=== PATIENT | male | born 1945 | race American Indian/Alaskan Native ===

== ENCOUNTER 2018-12-15 13:14 | Emergency (ER) | payer MEDICARE ==
--- OUTSIDE RECORDS SUMMARY | 2018-12-15 13:45 | XMS REPORT | Continuity of Care Document ---
:1945 Author Organization [facility] Address [address] [place] [address] Care Team Providers Name Role Phone Lou Hernandes MD Unavailable Unavailable Allergies, Adverse Reactions, Alerts Substance Reaction Status No information Medications Medication Instructions Dosage Effective Dates (start - stop) Status Comments No information Problems Condition Effective Dates (start - stop) Clinical Status Comments No information Procedures Procedure Date No information Results Test Name Date and Time Measure Units Reference Range Abnormal Flag Status Comments No information Advance Directives Directive Yes / No Effective Date File Name No information Encounters Encounter Practice Location Reason(s) Diagnoses Date Provider Providers Description For Visit Copied on Encounter Luisa Moran [facility]. [address] [facility] [place], [address] [facility], . Catcher tel:[phone] Daphnie, [address] [place], [place], [phone], Family History Family Member Diagnosis Age At Onset Brother Hypertension Brother Diabetes mellitus Immunizations Vaccine Date Status Comments No information Payers Payer name Insurance type Covered constitution party ID Authorization(s) [employer] [id number] Social History Type Description Quantity Date Captured Comments Alcohol Use Details Unknown Caffeine Use Details Unknown Tobacco Use Status Smoking Status Unknown Sex Male Vital Signs Date / Height Weight BMI Pulse Blood Temperature Respiratory Body Head BMI Pulse Inhaled Time: Rate Pressure Rate Surface Circumference percentile Ox Ox Area No information Chief Complaint And Reason For Visit No information Reason For Referral Reason For Referral No information Plan Of Treatment Date Type Action Status Appointment Shubham King BOOKED Appointment King, Shubham BOOKED History Of Present Illness Encounter Date Complaint History Of Present Illness No information Functional Status Date Functional Assessment No information Medications Administered Medication Instructions Dosage Effective Dates (start - stop) Status Comments No information Instructions Date Instruction Additional Information No information Assessments Type Assessment Date No information Goals Health Concern Goal Type Priority Status Date No information Medical Equipment Description Device Nightmute Device Identifier Effective Dates (start - stop ) Status No information Mental Status Date Cognitive Assessment No information Health Concerns Observation Date No information Concern Status Date No information
--- OUTSIDE RECORDS SUMMARY | 2018-12-15 13:45 | XMS REPORT | Continuity of Care Document ---
:1945 External Reference #:[id number] Author Name Guanaco Zhang MD Address [address] [place] [address] Care Team Providers Name Role Phone Bárbara Hernandes Care Team Information Mainframe Analyst Unavailable Bárbara Hernandes Primary Care Physician Unavailable Payers Date Identification Numbers Payment Provider Subscriber Policy Number: [id number] [facility]-T[facility] Opts PFFS Shubham King PayID: [id number] [address] [address] [place] [address] Expires: 2018 Policy Number: [id number] [employer] Medicare Advantage Shubham King PayID: [id number] [address] [place] [address] Expires: 2017 Policy Number: [id number] [facility] Options PFFS Shubham King Group Name: Medicare Advantage DO Not Use After 18 PayID: [id number] [address] [address] [place] [address] Expires: 2014 Policy Number: [facility] Medicare Solutions Shubham King [id number] PayID: [id number] [address] [address] [place] [address] Expires: 2014 Policy Number: [id number] [place] Shubham King PayID: [id number] Attn: [place] [address] Problems Active Problems Provider Date Microscopic hematuria RJ Haney C.U.N.P. Onset: 08/29/2011 Disorder of prostate RJ Haney C.U.N.P. Onset: 08/29/2011 Benign prostatic hypertrophy without IVELISSE HaneyBC C.U.N.P. Onset: outflow obstruction Nocturia - finding IVELISSE HaneyBC C.U.N.P. Onset: 08/29/2011 Dribbling of urine IVELISSE HaneyBC C.U.N.P. Onset: 08/29/2011 Raised prostate specific antigen IVELISSE HaneyBC C.U.N.P. Onset: 2011 Disorder of lung Guanaco Zhang MD Onset: 09/05/2011 Pulmonary function studies abnormal Guanaco Zhang MD Onset: 09/05/2011 Solitary Pulmonary Nodule IVELISSE HaneyBC C.U.N.P. Onset: 10/19/2012 Slowing of urinary stream IVELISSE HaneyBC C.U.N.P. Onset: 11/12/2012 Urge incontinence of urine LATANYA Haney-BC C.U.N.P. Onset: 06/10/2013 Increased frequency of urination IVELISSE HaneyBC C.U.N.P. Onset: 2014 Nocturia IVELISSE HaneyBC C.U.N.P. Onset: 07/17/2015 Solitary nodule of lung IVELISSE HaneyBC C.U.N.P. Onset: 07/17/2015 Poor stream of urine Guanaco Zhang MD Onset: 12/12/2015 Urinary tract infectious disease IVELISSE HaneyBC C.U.N.P. Onset: 2016 Incomplete emptying of bladder LATANYA Haney-BC C.U.N.P. Onset: 06/06/2016 Urgent desire to urinate IVELISSE HaneyBC C.U.N.P. Onset: 12/12/2016 Pawan hematuria IVELISSE HaneyBC C.U.N.P. Onset: 06/15/2017 Benign adenoma of prostate Onset: 05/12/2016 Community acquired pneumonia Onset: 05/12/2016 Bacteremia caused by Gram-negative Onset: 05/12/2016 bacteria Osteoarthritis of knee Onset: 03/05/2015 Body mass index 30+ - obesity Onset: 03/05/2015 H/O: Deep vein thrombosis Onset: 05/18/2005 Essential hypertension Onset: Chronic obstructive lung disease Onset: Gastroesophageal reflux disease Onset: without esophagitis Type 2 diabetes mellitus Onset: Diabetic polyneuropathy Onset: Hyperlipidemia Onset: H/O: fracture Onset: Glaucoma Onset: Benign prostatic hyperplasia Onset: Coronary arteriosclerosis in [place] Onset: artery Family History Date Family Member(s) Observation Comments Father Prostate Cancer Social History Type Date Description Comments Sex Unknown Marital Status Patient is Occupation Patient is retired Tobacco Use Start: Unknown End: Unknown Pt quit smoking 04/2009 after 40 yrs of 11/2 packs per day. Tobacco Use Start: Unknown End: Unknown Former Cigarette Smoker Smoking Status Reviewed: 12/07/18 Former Cigarette Smoker Tobacco Use Start: Unknown Never Smoked Cigars Tobacco Use Start: Unknown Never Smoked A Pipe ETOH Use Patient denies alcohol use Allergies, Adverse Reactions, Alerts Active Allergies Reaction Severity Comments Date Biaxin 08/29/2011 Clarithromycin Rash Mild 07/14/2009 Medications Active Medications SIG Qnty Indications Ordering Provider Date Tamsulosin HCL take 1 capsule by Virginiecapbibiana Zhang, 08/26/2010 0.4mg mouth once daily MD Capsules 1/2 hour after a meal mdd 1 Toprol XL 1 by mouth every Unknown 50mg Tablets day ER 24HR Cozaar to take one pill Unknown 50mg Tablets daily (losartan) Lipitor 1 by mouth every Unknown 10mg Tablets night at bedtime Aspirin Ec Unknown 325mg Tablets DR Yordy Dobson Unknown Lancets Extra Fine 33G Misc Onetouch Verio Unknown Strips Gabapentin Take 600 mg by Unknown 600mg mouth 3 (three) Tablets times a day Daliresp Take 500 mcg by Unknown 500mcg Tablets mouth nightly Advair Diskus Inhale 1 puff 2 Unknown (two) times a day 250-50mcg/Dose Aerosol Metformin HCL Unknown 500mg Tablets Duoneb qid Unknown 0.5-2.5(3)mg/3ML Solution Singulair daily Unknown 10mg Tablets History Medications Amoxicillin take 4 tablets 1 6caps Guanaco Cameron 06/15/2017 - 500mg Capsules hour prior to MD Vicente 08/28/2017 procedure and 2 tablets six hours after the first dose Nitrofurantoin Monohyd 1 by mouth twice a 14caps Guanaco Cameron 06/09/2016 - Macro day x 7 days MD Vicente 12/12/2016 100mg Capsules Prednisone Take 2 tablets (40 6tabs Unknown 05/16/2016 - 20mg Tablets mg total) by mouth 12/12/2016 daily for 3 days Guaifenesin-DM Take 10 mL by 354units Unknown 05/15/2016 - 100-10mg/5ML mouth every 6 12/12/2016 Liquid (six) hours for 7 days Then 10ml every 6 hours as needed for cough/ congestion Doxycycline Hyclate Take 1 tablet (100 8tabs Unknown 05/15/2016 - 100mg mg total) by mouth 06/05/2016 Tablets 2 (two) times a day for 4 days DSS Take 1 capsule 60caps Unknown 05/15/2016 - 100mg Capsules (100 mg total) by 12/12/2016 mouth 2 (two) times a day as needed for constipation Cefuroxime Axetil Take 1 tablet (500 22tabs Unknown 05/15/2016 - 500mg mg total) by mouth 12/12/2016 Tablets 2 (two) times a day for 11 days Benzonatate Take 1 capsule 20caps Unknown 05/15/2016 - 100mg Capsules (100 mg total) by 12/12/2016 mouth 3 (three) times a day as needed for cough Albuterol Sulfate Take 3 mL (2.5 mg 75units Unknown 05/15/2016 - (2.5mg/3ML) total) by 06/06/2016 0.083% Nebulizer nebulization every 4 (four) hours as needed for wheezing or shortness of breath Acetaminophen Take 2 tablets 30tabs Unknown 05/15/2016 - 325mg Tablets (650 mg total) by 12/12/2016 mouth every 6 (six) hours as needed for pain or fever Ampicillin take 4 tablest one 6caps Guanaco Cameron 03/31/2016 - 500mg Capsules hour prior to ov MD Vicente 12/12/2016 and 2 tablets 6 hours after the first dose Cipro take one tablet 4tabs N42.9 Alejandra Hays, 03/28/2016 - 500mg Tablets twice a day per [facility]- 03/31/2016 instructions for C.U.N.P. procedure Sylvester Take 2 tablet one 4tabs Guanaco A 03/28/2016 - 5-325mg Tablets hour prior to MD Vicente 06/05/2016 procedure and then one every 4 hours for pain prn I Stop # [id number] Cipro take one tablet 4tabs 602.9 Alejandra Hays, 11/24/2014 - 500mg Tablets twice a day per [facility]- 01/05/2015 instructions for C.U.N.P. procedure Atorvastatin Calcium Take 10 mg by Unknown 02/23/2014 - 10mg mouth daily 12/12/2016 Tablets Clotrimazole/Betamethaso Apply 1 Unknown - ne Dipropionate application 08/28/2017 1-0.05% Cream topically daily as needed (to bilateral for skin peeling) Metoprolol Succinate ER Take 25 mg by Unknown - 25mg mouth nightly 08/28/2017 Tablets ER 24HR Albuterol Sulfate Unknown - (2.5mg/3ML) 08/28/2017 0.083% Nebulizer Atorvastatin Calcium take 1 tablet by Unknown - 10mg mouth once daily 08/28/2017 Tablets Levofloxacin take 1 tablet by Unknown - 500mg Tablets mouth once daily 12/12/2016 Methylprednisolone take as directed Unknown - 4mg TBPK on pack 12/12/2016 Tramadol HCL ER take 1 tablet by Unknown - 100mg Tablets mouth once daily 08/28/2017 ER 24HR for pain maximum daily dose of 1 Nortriptyline HCL Unknown - 25mg 08/28/2017 Capsules Ra Acetaminophen take 2 tablets by Unknown - 325mg mouth every 6 12/12/2016 Tablets hours if needed for pain or fever Ra Col-Rite take 1 capsule by Unknown - 100mg Capsules mouth twice a day 12/12/2016 if needed for constipation Ra Tussin DM take 10 Unknown - 100-10mg/5ML milliliters by 12/12/2016 Liquid mouth every 6 hours for 7 days then 10 mil... Doxycycline Hyclate take 1 tablet by Unknown - 100mg mouth twice a day 12/12/2016 Tablets for 4 days Cefuroxime Axetil take 1 tablet by Unknown - 500mg mouth twice a day 12/12/2016 Tablets for 11 Days Benzonatate take 1 capsule by Unknown - 100mg Capsules mouth three times 12/12/2016 a day if needed for cough Ciprofloxacin HCL take 1 tablet by Unknown - 500mg mouth twice a day 12/12/2016 Tablets Per Instructions For Procedure Hydrocodone-Acetaminophe take 2 tablets by Unknown - n mouth 1 hour prior 12/12/2016 5-325mg Tablets to procedure then 1 tablet every Amoxicillin/Clavulanate take 1 tablet by Unknown - Potassium mouth twice a day 12/12/2016 875-125mg Tablets Nexium 1 po qd Unknown - 40mg Capsules DR 06/14/2017 Zanaflex bid Unknown - 4mg Tablets 12/12/2016 Topamax qd Unknown - 25mg 11/24/2014 Aspirin Adult Low bid Unknown - Strength 07/16/2015 81mg Chewtabs Levaquin 1 po qd for 7 days 7tabs Unknown - 750mg Tablets to start the day 11/24/2014 of discharge Flagyl 1 po tid 21tabs Unknown - 250mg Tablets 11/24/2014 Lipitor Unknown - 06/14/2017 Calcium Unknown - 07/16/2015 Xopenex Unknown - 12/12/2016 Flonase Allergy Relief Unknown - 08/28/2017 Topamax qd Unknown - 25mg 07/16/2015 Gabapentin Unknown - 100mg Capsules 06/05/2016 Losartan Potassium take 1 tablet by Unknown - 50mg mouth once daily 08/28/2017 Tablets Incruse Ellipta Inhale 1 puff Unknown - 62.5mcg/Inh daily 08/28/2017 Aerosol Cyclobenzaprine HCL Take 5 mg by mouth Unknown - 5mg 3 (three) times a 12/12/2016 Tablets day as needed for muscle spasms Ranitidine HCL Take 300 mg by Unknown - 300mg Tablets mouth 2 (two) 08/28/2017 times a day Oxycodone HCL Take 5 mg by mouth Unknown - 5mg Tablets 2 (two) times a 08/28/2017 day as needed for pain Medications Administered in Office Medication SIG Qnty Indications Ordering Provider Date Gentamicin 160 MG Guanaco Zhang MD 05/09/2016 Injection Immunizations CPT Code Status Date Vaccine Lot # [id number] Given 02/16/2016 Influenza Vaccine Split Virus Preservative Free Im Use [id number] Given 05/18/2014 Pneumococcal Conjugate Vaccine 13 Valent For Intramuscular Use Vital Signs Date Vital Result Comment 12/07/2018 12:58pm Height 68 inches 5'8" Weight 204.00 lb Weight 92.534 kg BMI (Body Mass Index) 31.0 kg/m2 BP Systolic 116 mmHg BP Diastolic 71 mmHg Heart Rate 64 /min 08/28/2017 10:56am Height 68 inches 5'8" Weight 212.00 lb Weight 96.163 kg BMI (Body Mass Index) 32.2 kg/m2 BP Systolic 130 mmHg BP Diastolic 78 mmHg Heart Rate 68 /min 06/15/2017 2:52pm Height 68 inches 5'8" Weight 208.00 lb Weight 94.349 kg BMI (Body Mass Index) 31.6 kg/m2 BP Systolic 105 mmHg BP Diastolic 67 mmHg Heart Rate 98 /min 12/12/2016 9:46am Height 68 inches 5'8" Weight 206.00 lb Weight 93.442 kg BMI (Body Mass Index) 31.3 kg/m2 BP Systolic 116 mmHg BP Diastolic 70 mmHg Heart Rate 93 /min Post Void Residual ml 26 Bladder Scan 06/06/2016 9:06am Post Void Residual ml 14 Bladder Scan, Indication: frequency 05/15/2016 7:22am BP Systolic 129 mmHg BP Diastolic 68 mmHg Heart Rate 59 /min Respiratory Rate 18 /min Body Temperature 98.2 F O2 % BldC Oximetry 99 % 05/11/2016 1:26pm Height 69.02 inches 5'9.02" Weight 218.00 lb Weight 98.884 kg BMI (Body Mass Index) 32.19 kg/m2 07/17/2015 12:53pm Height 68 inches 5'8" Weight 211.00 lb Weight 95.710 kg BMI (Body Mass Index) 32.1 kg/m2 BP Systolic 124 mmHg BP Diastolic 82 mmHg Heart Rate 72 /min Post Void Residual ml 13 Bladder Scan, Indication: frequency 11/24/2014 8:28am Height 68 inches 5'8" Weight 211.00 lb Weight 95.710 kg BMI (Body Mass Index) 32.1 kg/m2 BP Systolic 123 mmHg BP Diastolic 76 mmHg Heart Rate 65 /min Post Void Residual ml 110 Bladder Scan, Indication: uroflow 06/10/2013 4:25pm Post Void Residual 19.0cc 10/19/2012 9:40am Height 68 inches 5'8" Weight 218.00 lb Weight 98.885 kg BMI (Body Mass Index) 33.1 kg/m2 BP Systolic 118 mmHg BP Diastolic 80 mmHg 08/29/2011 3:22pm Height 68 inches 5'8" Weight 212.00 lb Weight 96.163 kg BMI (Body Mass Index) 32.2 kg/m2 BP Systolic 130 mmHg BP Diastolic 80 mmHg Results Test Date Facility Test Result H/L Range Note Laboratory test 12/07/2018 [facility] Urine Cytology <pending> finding [address] [place] [address] [phone] Laboratory test 12/07/[address] [place] [facility] Urine Culture < pending> finding [address] [place] [address] [id number] [phone] 230 Ua Routine 12/07/2018 [facility] Ua Glucose Negative REF TO DR ADDRESS ON ORDER FOR (330)- - Ua Protein Negative Ua Nitrite Negative Ua Leuko Negative Ua Blood Trace-intact * Ua Color Yellow Ua Ketones Negative Ua Clarity Clear Ua Specific [place] 1.015 1.003-1.030 Ua PH 7.0 5.0-7.5 Ua Bilirubin Negative Ua Urobilinogen 0.2 E.U./dL 0.0-1.0 Laboratory 12/04/2018 [facility] [place] - Nicky PSA,Total @ 9.1 ng/mL High (0.0-4.0) 1 test finding [address] [facility] [address] [address] [phone] Laboratory 08/28/2017 [facility] Urine Culture SPECIMEN 2 test finding [address] [place] [address] [phone] 230 Ua Routine 08/28/2017 [facility] Ua Glucose Negative REF TO DR ADDRESS ON ORDER FOR (125)- - Ua Protein Negative Ua Nitrite Negative Ua Leuko Negative Ua Blood Trace-intact * Ua Color Yellow Ua Ketones Negative Ua Clarity Clear Ua Specific [place] 1.010 1.003-1.030 Ua PH 7.0 5.0-7.5 Ua Bilirubin Negative Ua Urobilinogen 0.2 E.U./dL 0.0-1.0 BUN And 08/15/2017 [facility] Urea Nitrogen 11 mg/dL (7-24) Creatinine [address] [facility] [address] [address] [phone] Creatinine 08/15/2017 [facility] Creatinine 0.70 mg/dL Low (0.80-1.30 [address] [facility] [address] ) [place] [address] [phone] GFR >60 ml/min/1.73m2 (>59) GFR ( Amer) >60 ml/min/1.73m2 (>59) GFR Interpretation <SEE NOTE> 3 Laboratory test 06/15/2017 [facility] Urine Culture SPECIMEN [address] [place] [address] [phone] Urine Cytology 06/15/2017 [facility] Clinical R97.20 [address] [place] [address] [phone] Specimen Adequacy Satisfactory for <SEE NOTE> N 5 BodySite Voided - Clean C <SEE NOTE> N 6 Gross Description Received in a sp <SEE NOTE> N 7 Microscopic Description Rare cells with <SEE NOTE> N 8 Final Diagnosis NEGATIVE FOR HIG <SEE NOTE> N 9 CPTCode 88332 N PDF Report SEE IMAGE 230 Ua Routine 06/15/2017 [facility] Ua Glucose Negative REF TO DR ADDRESS ON ORDER FOR (527)- - Ua Protein Negative Ua Nitrite Negative Ua Leuko Negative Ua Blood Moderate * Ua Color Yellow Ua Ketones Negative Ua Clarity Clear Ua Specific [place] 1.015 1.003-1.030 Ua PH 5.5 5.0-7.5 Ua Bilirubin Negative Ua Urobilinogen 0.2 E.U./dL 0.0-1.0 Laboratory test 06/12/2017 [facility] Total Psa 10.07 ng/mL High 0.00-4.[address] [place] [address] [phone] 230 Ua Routine 12/12/2016 [facility] Ua Glucose Negative REF TO DR ADDRESS ON ORDER FOR (315)- - Ua Protein Negative Ua Nitrite Negative Ua Leuko Negative Ua Blood Trace-lysed * Ua Color Yellow Ua Ketones Negative Ua Clarity Clear Ua Specifici [place] 1.010 1.003-1.030 Ua PH 6.0 5.0-7.5 Ua Bilirubin Negative Ua Urobilinogen 0.2 E.U./dL 0.0-1.0 Laboratory 12/09/2016 [facility] Total Psa 10.000 High 0.000-4.000 10 test finding [address] [place] [address] ng/[place] [address] [phone] Laboratory 06/06/2016 Laboratory [facility] Urine SPECIMEN 11, test finding [address] Culture DESCRI> [address] [place] [address] [phone] 230 Ua Routine 06/06/2016 [facility] Ua Glucose Negative REF TO DR ADDRESS ON ORDER FOR (315)- - Ua Protein Negative Ua Nitrite Negative Ua Leuko Large * Ua Blood Small * Ua Color Yellow Ua Ketones Negative Ua Clarity Clear Ua Specifici [place] 1.015 1.003-1.030 Ua PH 5.5 5.0-7.5 Ua Bilirubin Negative Ua Urobilinogen 0.2 E.U./dL 0.0-1.0 Poct glucose 05/15/2016 N2N/CCD Import Glucose, Poc 200 mg/dL High 70 - 99 BMP 05/14/2016 N2N/CCD Import Anion Gap 9 mmol/L 7 - 16 BUN/Creatinine Ratio 15.6 Ratio 10.0 - 20.0 Calcium 7.9 mg/dL Low 8.4 - 10.2 Chloride 109 mmol/L High 100 - 108 Co2 26 mmol/L 22 - 31 Creatinine 0.77 mg/dL Low 0.80 - 1.30 GFR MDRD Af Amer >60 >59 ml/min/1.73m2 GFR MDRD Non Af Amer >60 >59 ml/min/1.73m2 Glom Filt Rate, Est See Notes Glucose 215 mg/dL High 70 - 99 Potassium 4.4 mmol/L 3.6 - 5.2 Sodium 144 mmol/L 136 - 145 Urea nitrogen 12 mg/dL 7 - 24 CBC 05/14/2016 N2N/CCD Import Hematocrit 32.1 % Low 41.0 - 53.0 Hemoglobin 10.6 g/dL Low 13.5 - 18.0 MCH 25.2 pg Low 27.0 - 32.0 MCHC 33.1 g/dL 32.0 - 36.0 MCV 76.0 fL Low 80.0 - 95.0 MPV 9.4 fL 7.1 - 10.7 Platelets 192 10*3/uL 150 - 450 RBC 4.22 10*6/uL Low 4.60 - 6.10 RDW 17.2 % High 10.5 - 14.5 WBC 9.9 10*3/uL 4.1 - 11.0 Bilirubin, panel 05/12/2016 N2N/CCD Import Bilirubin, Direct 0.4 mg/dL High 0.0 - 0.3 Bilirubin, Indirect 0.7 mg/dL 0.0 - 0.7 Bilirubin, Total 1.1 mg/dL High 0.0 - 1.0 Ferritin 05/12/2016 N2N/CCD Import Ferritin 132 ng/mL 26 - 388 Iron Panel 05/12/2016 N2N/CCD Import Iron 16 g/dL Low 35 - 150 Iron Saturation 5 % Low 12 - 50 Tibc 315 g/dL 250 - 450 Uibc 299 g/dL 130 - 375 Legionella antigen, 05/11/2016 N2N/CCD Import Report Status 05/13/2016 Final urine Specimen Description Urine, Collection Method Not Specified Strep Pneumonia Urine 05/11/2016 N2N/CCD Import Report Status 05/13/2016 Final Antigen Results: Negative For Streptococcus Pneumoniae Antigen By Eia Specimen Description Urine, Collection Method Not Specified Urine Culture 05/11/2016 N2N/CCD Import Culture Result No Growth Report Status 05/12/2016 Final Specimen Description Midstream Urine,Clean Catch Blood Culture Peripheral x 05/11/2016 N2N/CCD Import Organism Escherichia Coli 1 Set (2 bottles aerobi Report Status 05/14/2016 Final Special Requests None Specimen Description Peripheral Lactate, Poc 05/11/2016 N2N/CCD Import Lactate, Poc 1.43 mmol/L 0.90 - 1.70 B-type 05/11/2016 N2N/CCD Import B natriuretic <20 0 - 100 natriuretic peptide pg/mL peptide CBC w/ diff 05/11/2016 N2N/CCD Import Anisocytosis 1+ Hematocrit 39.0 % Low 41.0 - 53.0 Hemoglobin 12.8 g/dL Low 13.5 - 18.0 Lymphocytes Absolute 0.4 10*3/uL Low 1.2 - 4.8 Lymphocytes Relative 2.0 % Low 16.0 - 52.0 MCH 25.0 pg Low 27.0 - 32.0 MCHC 32.9 g/dL 32.0 - 36.0 MCV 76.2 fL Low 80.0 - 95.0 MPV 8.0 fL 7.1 - 10.7 Microcytosis 1+ Monocytes Absolute 0.7 10*3/uL 0.0 - 0.8 Monocytes Relative 4.0 % 0.0 - 8.0 Neutrophils % 94.0 % High 35.0 - 75.0 Neutrophils Absolute 16.9 10*3/uL High 1.8 - 7.7 Platelets 207 10*3/uL 150 - 450 RBC 5.11 10*6/uL 4.60 - 6.10 RDW 17.0 % High 10.5 - 14.5 WBC 18.0 10*3/uL High 4.1 - 11.0 Comprehensive metabolic 05/11/2016 N2N/CCD Import Alb/Glob ratio 0.8 Ratio panel Albumin 3.5 g/dL 3.2 - 4.5 Alkaline Phosphatase 121 U/L High 45 - 117 Alt 21 U/L 12 - 78 Anion Gap 11 mmol/L 7 - 16 Ast 13 U/L 11 - 39 BUN/Creatinine Ratio 13.8 Ratio 10.0 - 20.0 Bilirubin, Total 1.6 mg/dL High 0.0 - 1.0 Calcium 8.3 mg/dL Low 8.4 - 10.2 Chloride 104 mmol/L 100 - 108 Co2 23 mmol/L 22 - 31 Creatinine 1.23 mg/dL 0.80 - 1.30 GFR MDRD Af Amer >60 >59 ml/min/1.73m2 GFR MDRD Non Af Amer 58 ml/min/1.73m2 Low >59 Globulin 4.3 g/dL 2.7 - 4.3 Glom Filt Rate, Est See Notes Glucose 148 mg/dL High 70 - 99 Potassium 3.9 mmol/L 3.6 - 5.2 Protein, Total 7.8 g/dL 6.4 - 8.2 Sodium 138 mmol/L 136 - 145 Urea nitrogen 17 mg/dL 7 - 24 Hemoglobin A1c 05/11/2016 N2N/CCD Import Est. Average Glucose 157 mg/dL Hemoglobin A1c 7.1 % High 4.0 - 6.0 Troponin I 05/11/2016 N2N/CCD Import Troponin I <0.06 0.00 - 0.10 ng/mL Prostate Biopsy 05/09/2016 [facility] Clinical History 10.29 N 13 [address] [place] [address] [phone] Left Base Benign prostatic <SEE NOTE> N 14 Left Lateral Base Benign prostatic <SEE NOTE> N 15 Left Mid Benign prostatic <SEE NOTE> N 16 Left Lateral Mid Benign prostatic <SEE NOTE> N 17 Left [place] Benign prostatic <SEE NOTE> N 18 Left Lateral [place] Benign prostatic <SEE NOTE> N 19 Right Base Benign prostatic <SEE NOTE> N 20 Right Lateral Base Benign prostatic <SEE NOTE> N 21 Right Mid PROSTATIC TISSUE <SEE NOTE> N 22 Right Lateral Mid HIGH -GRADE PROS <SEE NOTE> N 23 Right [place] Benign prostatic <SEE NOTE> N 24 Right Lateral [place] Benign prostatic <SEE NOTE> N 25 PDF Report SEE IMAGE 230 Ua Routine 05/09/2016 [facility] Ua Glucose Negative REF TO DR ADDRESS ON ORDER FOR (315)- - Ua Protein Negative Ua Nitrite Negative Ua Leuko Negative Ua Blood Small * Ua Color Yellow Ua Ketones Negative Ua Clarity Clear Ua Specifici [place] 1.010 1.003-1.030 Ua PH 6.0 5.0-7.5 Ua Bilirubin Negative Ua Urobilinogen 0.2 E.U./dL 0.0-1.0 Laboratory test 05/09/[address] [place] [facility] Urine Culture SPECIMEN 26 finding [address] [place]CRI> [place] [address] [phone] Laboratory test 04/01/2016 [facility] [place] [facility] SPECIMEN 27 finding POB FX# [phone] DESCRI> [phone] 230 Ua Routine 03/28/2016 [facility] Ua Glucose Negative REF TO DR ADDRESS ON ORDER FOR (315)- - Ua Protein Negative Ua Nitrite Negative Ua Leuko Negative Ua Blood Trace-intact * Ua Color Yellow Ua Ketones Negative Ua Clarity Clear Ua Specifici [place] 1.015 1.003-1.030 Ua PH 6.0 5.0-7.5 Ua Bilirubin Negative Ua Urobilinogen 0.2 E.U./dL 0.0-1.0 Laboratory test 03/28/2016 [facility] Rectal Swab POSITIVE - Abnormal 28 finding [address] [facility] Screen Fluor <[place] [address] NOTE> [phone] Laboratory test 03/14/2016 [facility] Total Psa 10.29 ng/mL High 0.00 finding [address] [facility] Only -4.0 [place] [address] 0 [phone] 230 Ua Routine 03/14/2016 [facility] Ua Glucose Negative REF TO DR ADDRESS ON ORDER FOR (315)- - Ua Protein Negative Ua Nitrite Negative Ua Leuko Negative Ua Blood Trace-intact * Ua Color Yellow Ua Ketones Negative Ua Clarity Clear Ua Specifici [place] 1.010 1.003-1.030 Ua PH 7.0 5.0-7.5 Ua Bilirubin Negative Ua Urobilinogen 0.2 E.U./dL 0.0-1.0 230 Ua Routine 12/12/2015 [facility] Ua Glucose Negative REF TO DR ADDRESS ON ORDER FOR (315)- - Ua Protein Negative Ua Nitrite Negative Ua Leuko Negative Ua Blood Trace-lysed * Ua Color Yellow Ua Ketones Negative Ua Clarity Clear Ua Specifici [place] 1.010 1.003-1.030 Ua PH 7.0 5.0-7.5 Ua Bilirubin Negative Ua Urobilinogen 0.2 E.U./dL 0.0-1.0 BUN And 12/07/[address] [facility] Urea Nitrogen 14 mg/dL (7-24) Creatinine [address] [facility] [address] [place], [place] [id number] [phone] Creatinine 12/07/[address] [facility] Creatinine 0.88 mg/dL (0.80-1.30) [address] [facility] [address] [place], [place] 8[address]51 [phone] GFR >60 ml/min/1.73m2 (>59) GFR ( Amer) >60 ml/min/1.73m2 (>59) GFR Interpretation <SEE NOTE> 29 230 Ua Routine 07/17/2015 [facility] Ua Glucose Negative REF TO DR ADDRESS ON ORDER FOR (315)- - Ua Protein Negative Ua Nitrite Negative Ua Leuko Trace * Ua Blood Negative Ua Color Yellow Ua Ketones Negative Ua Clarity Clear Ua Specifici [place] 1.015 1.003-1.030 Ua PH 7.0 5.0-7.5 Ua Bilirubin Negative Ua Urobilinogen 0.2 E.U./dL 0.0-1.0 Urine Microscopy 07/17/2015 [facility] Urine WBC 0-2 /HPF 0 - 5 [address] [place] [address] [phone] Urine RBC 0-2 /HPF 0-2 Bacteria NEG /HPF Neg Crystals NEG /HPF Neg Epithelial Cells NEG /HPF Neg Sperm NEG /HPF Neg Yeast NEG /HPF Neg 230 Ua Routine 07/17/2015 [facility] Ua Glucose Negative REF TO DR ADDRESS ON ORDER FOR (315)- - Ua Protein Negative Ua Nitrite Negative Ua Leuko Negative Ua Blood Trace-lysed * Ua Color Yellow Ua Ketones Negative Ua Clarity Clear Ua Specifici [place] 1.015 1.003-1.030 Ua PH 6.0 5.0-7.5 Ua Bilirubin Negative Ua Urobilinogen 0.2 E.U./dL 0.0-1.0 Laboratory test finding 07/09/2015 Outside Facility PSA Total 6.6 High (315)- - #Ua Routine 01/05/2015 [facility] Ua Glucose Negative REF TO DR ADDRESS ON ORDER FOR (315)- - Ua Protein Negative Ua Nitrite Negative Ua Leuko Negative Ua Blood Large * Ua Color Yellow Ua Ketones Negative Ua Clarity Clear Ua Specific [place] 1.010 1.003-1.030 Ua PH 6.0 5.0-7.5 Ua Bilirubin Negative Ua Urobilinogen 0.2 E.U./dL 0.0-1.0 Prostate Biopsy 12/27/2014 [facility] Clinical History 790.93 N 30 1226 [place], [place] [id number] [phone] BodySite PROSTATE N SubSite RIGHT LATERAL AP <SEE NOTE> N 31 SpecialProcedure BIOPSY N Final Diagnosis Benign prostatic <SEE NOTE> N 32 Stain 1-3 N CPTCode [id number] N [id number] 790.93 N PDF Report SEE IMAGE Laboratory test 12/27/[address] [place] [facility] Urine Culture SPECIMEN 33 finding 3[address] [place] [address] [phone] #Ua Routine 12/27/2014 [facility] Ua Glucose Negative REF TO DR ADDRESS ON ORDER FOR (315)- - Ua Protein Negative Ua Nitrite Negative Ua Leuko Negative Ua Blood Negative Ua Color Yellow Ua Ketones Negative Ua Clarity Clear Ua Specific [place] <=1.005 1.003-1.030 Ua PH 7.0 5.0-7.5 Ua Bilirubin Negative Ua Urobilinogen 0.2 E.U./dL 0.0-1.0 Laboratory test 11/24/[address] [place] [facility] Urine Culture SPECIMEN 34 finding [address] [place] [address] [phone] #Ua Routine 11/24/2014 [facility] Ua Glucose Negative REF TO DR ADDRESS ON ORDER FOR (315)- - Ua Protein Negative Ua Nitrite Negative Ua Leuko Negative Ua Blood Trace-lysed * Ua Color Yellow Ua Ketones Negative Ua Clarity Clear Ua Specific [place] <=1.005 1.003-1.030 Ua PH 6.0 5.0-7.5 Ua Bilirubin Negative Ua Urobilinogen 0.2 E.U./dL 0.0-1.0 Laboratory test 11/24/2014 [facility] Rectal Swab NEGATIVE - No 35 finding 1226 [facility] <SEE NOTE> [place] [address] [phone] Laboratory test 11/21/2014 Outside Facility PSA Total 7.8 High finding (315)- - #Ua Routine 06/10/2013 [facility] Ua Glucose Negative REF TO DR ADDRESS ON ORDER FOR (315)- - Ua Protein Negative Ua Nitrite Negative Ua Leuko Trace * Ua Blood Negative Ua Color Not Entered Ua Ketones Negative Ua Clarity Not Entered Ua Specific [place] >=1.030 1.003-1.030 Ua PH 5.5 5.0-7.5 Ua Bilirubin Negative Ua Urobilinogen 0.2 E.U./dL 0.2-1 Laboratory test finding 04/29/2013 PSA Total 6.6 #Ua Routine 11/12/2012 [facility] Ua Glucose Negative REF TO DR ADDRESS ON ORDER FOR (315)- - Ua Protein Negative Ua Nitrite Negative Ua Leuko Negative Ua Blood Large * Ua Color Not Entered Ua Ketones Negative Ua Clarity Not Entered Ua Specific [place] <=1.005 Ua PH 5.5 Ua Bilirubin Negative Ua Urobilinogen 0.2 E.U./dL Culture Urine 11/04/2012 [facility] Result (SEE NOTE ) [address] [place] [address] [phone] #Ua Routine 11/04/2012 [facility] Ua Glucose Negative REF TO DR ADDRESS ON ORDER FOR (315)- - Ua Protein Negative Ua Nitrite Negative Ua Leuko Negative Ua Blood Trace-intact * Ua Color Not Entered Ua Ketones Negative Ua Clarity Not Entered Ua Specific [place] 1.015 Ua PH 6.5 Ua Bilirubin Negative Ua Urobilinogen 0.2 E.U./dL #Ua Routine 10/19/2012 [facility] Ua Glucose Negative REF TO DR ADDRESS ON ORDER FOR (315)- - Ua Protein Negative Ua Nitrite Negative Ua Leuko Negative Ua Blood Negative Ua Color Not Entered Ua Ketones Negative Ua Clarity Not Entered Ua Specific [place] 1.010 Ua PH 7.0 Ua Bilirubin Negative Ua Urobilinogen 0.2 E.U./dL Rectal Swab SCR 10/19/2012 [facility] Rectal Swab NEGATIVE - No [address] [place] [address] <SEE NOTE> [place] [address] [phone] Laboratory test 10/13/2012 PSA Total 6.5 finding #Ua Routine 09/05/2011 [facility] Ua Glucose Negative REF TO DR ADDRESS ON ORDER FOR (315)- - Ua Protein Negative Ua Nitrite Negative Ua Leuko Trace * Ua Blood Trace-lysed * Ua Color Not Entered Ua Ketones Negative Ua Clarity Not Entered Ua Specific [place] 1.015 Ua PH 5.0 Ua Bilirubin Negative Ua Urobilinogen 0.2 E.U./dL Culture Urine 09/05/2011 [facility] Result (SEE NOTE ) [address] [place] [address] [phone] BUN & Creatinine 08/29/2011 Outside Facility BUN - Urea 12 (315)- - Nitrogen Creatinine Serum 0.8 #Ua Routine 08/29/2011 [facility] Ua Glucose Negative REF TO DR ADDRESS ON ORDER FOR (315)- - Ua Protein Negative Ua Nitrite Negative Ua Leuko Negative Ua Blood Trace-intact * Ua Color Not Entered Ua Ketones Negative Ua Clarity Not Entered Ua Specific [place] 1.010 Ua PH 6.0 Ua Bilirubin Negative Ua Urobilinogen 0.2 E.U./dL Laboratory test 08/29/2011 [facility] Inhouse Lab Urine Cytology Void X finding REF TO DR ADDRESS ON ORDER FOR (Amp/CBL) (315)- - Laboratory test 08/18/2011 Outside Facility PSA Total 4.6 finding (315)- - #Ua Routine 02/28/2011 [facility] Ua Glucose Negative REF TO DR ADDRESS ON ORDER FOR (315)- - Ua Prot/Creat Normal Ua Protein Negative Ua Nitrite Negative Ua Leuko Negative Ua Blood Negative Ua Color Not Entered Ua Ketones Negative Ua Clarity Not Entered Ua Specific [place] <=1.005 Ua PH 6.0 Ua Creatinine 50 mg/dL Laboratory test finding 02/14/2011 PSA Total 4.5 #Ua Routine 08/30/2010 [facility] Ua Glucose Negative REF TO DR ADDRESS ON ORDER FOR (315)- - Ua Prot/Creat Normal Dilute Ua Protein Negative Ua Nitrite Negative Ua Leuko Negative Ua Blood Negative Ua Color Not Entered Ua Ketones Negative Ua Clarity Not Entered Ua Specific [place] <=1.005 Ua PH 5.5 Ua Creatinine 10 mg/dL Laboratory test finding 08/16/2010 PSA Total (Screen) 3.9 Laboratory test finding 05/06/2010 Outside Facility PSA Total 5.0 (315)- - Laboratory test finding 02/04/2010 Outside Facility PSA Total 5.2 (315)- - Laboratory test finding 06/19/2009 Outside Facility PSA Total 2.8 (315)- - Laboratory test finding 03/21/2009 Outside Facility PSA Total 5.0 (315)- - 1 IN 20% OF CASES W/ BPH, PSA MAY BE 10 NG/ML OR MORE. SERUM PSA CONCENTRATION SHOULD NOT BE INTERPRETED ABSOLUTE EVIDENCE FOR THE PRESENCE OR ABSENCE OF MALIGNANT DISEASE. METHOD IS [employer] CHEMILUMINESCENT IMMUNOASSAY (CALIBRATION TRACEABLE TO WHO 1ST IS, 1998,96/668). VALUES OBTAINED WITH DIFFERENT ASSAY METHODS OR KITS CANNOT BE USED INTERCHANGEABLY. 2 SPECIMEN DESCRIPTION MIDSTREAM URINE,CLEAN CATCH CULTURE RESULTS NO GROWTH REPORT STATUS FINAL 08/29/2017 3 NORMAL KIDNEY FUNCTION OR MILD DISEASE - GFR >OR=60 CHRONIC KIDNEY DISEASE - GFR 15 - 59 RENAL FAILURE - GFR <15 Est. GFR calculation based on the MDRD study equation, which assumes a steady state for creatinine. Est. GFR should not be used for medication dosing. 4 SPECIMEN DESCRIPTION MIDSTREAM URINE,CLEAN CATCH CULTURE RESULTS NO GROWTH REPORT STATUS FINAL 06/17/2017 5 Satisfactory for evaluation. 6 Voided - Clean Catch 7 Received in a specimen container, labeled with the patients name and , is Clear Yellow fluid consistent with urine, measuring approximately 30 ml. 8 Rare cells with nuclear changes due to polyomavirus infection (viral associated aneuploidy may interfere with urine FISH testing). 9 NEGATIVE FOR HIGH-GRADE UROTHELIAL CARCINOMA. 10 Have labs drawn one week prior to next appointment. 11 SPECIMEN DESCRIPTION BLADDER URINE CULTURE RESULTS 50,000 CFU/ML ESCHERICHIA COLI REPORT STATUS FINAL 06/09/2016 ORGANISM ESCHERICHIA COLI METHOD ALEX AMIKACIN <=2 SUSCEPTIBLE AMOXICILLIN/CLAVULANIC AC 4/2 SUSCEPTIBLE AMPICILLIN >=32 RESISTANT ISOLATES SUSCEPTIBLE TO AMPICILLIN ARE ALSO SUSCEPTIBLE TO AMOXICILLIN. CEFAZOLIN <=4 SUSCEPTIBLE FOR UNCOMPLICATED UTI'S,CEFAZOLIN ALEX RESULTS LESS THAN OR EQUAL TO 16 MCG/ML PREDICT SUSCEPTIBILITY OF THE FOLLOWING ORAL CEPHALOSPORINS:CEFACLOR,CEFDINIR, CEFPODOXIME,CEFPROZIL,CEFUROXIME AND CEPHALEXIN. CEFEPIME <=1 SUSCEPTIBLE CEFOXITIN 16 INTERMEDIATE CEFTAZIDIME <=1 SUSCEPTIBLE CEFTRIAXONE <=1 SUSCEPTIBLE CIPROFLOXACIN >=4 RESISTANT GENTAMICIN <=1 SUSCEPTIBLE LEVOFLOXACIN >=8 RESISTANT NITROFURANTOIN <=16 SUSCEPTIBLE PIPERACILLIN/TAZOBACTAM <=4 SUSCEPTIBLE TETRACYCLINE >=16 RESISTANT TOBRAMYCIN <=1 SUSCEPTIBLE TRIMETH/SULFA >=16/304 RESISTANT ERTAPENEM <=0.5 SUSCEPTIBLE 12 06/09/16 (ThuJun 09) 08:54 AM ALEJANDRA HAYS NP 06/09/16: Macrobid 100 mgs BID for 7 days. Graham Hays NP 13 t2a R97.20 R35.0 R39.15 14 Benign prostatic tissue. 15 Benign prostatic tissue. 16 Benign prostatic tissue. 17 Benign prostatic tissue. 18 Benign prostatic tissue. NOTE: The diagnosis is supported by results of immunohistochemical multiplex stains for racemase, high molecular weight cytokeratin, and p63. (Technical component of immunostains performed by JUAN SOLIMAN) 19 Benign prostatic tissue. Focal chronic inflammation present. 20 Benign prostatic tissue. 21 Benign prostatic tissue. 22 PROSTATIC TISSUE WITH FOCUS OF SMALL ATYPICAL GLANDS, SUSPICIOUS FOR ADENOCARCINOMA. NOTE: The diagnosis is supported by results of immunohistochemical multiplex stains for racemase, high molecular weight cytokeratin, and p63. 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 NOTE: The diagnosis is supported by results of immunohistochemical multiplex stains for racemase, high molecular weight cytokeratin, and p63. (Technical component of immunostains performed by JUAN SOLIMAN) 24 Benign prostatic tissue. 25 Benign prostatic tissue. NOTE: The diagnosis is supported by results of immunohistochemical multiplex stains for racemase, high molecular weight cytokeratin, and p63. (Technical component of immunostains performed by JUAN SOLIMAN) 26 SPECIMEN DESCRIPTION BLADDER URINE CULTURE RESULTS NO GROWTH REPORT STATUS FINAL 05/10/2016 27 SPECIMEN DESCRIPTION RECTAL SPECIAL REQUESTS NONE CULTURE RESULTS GRAM NEGATIVE RODS UNABLE TO GROW FOR ID AND SENSITIVITY REPORT STATUS FINAL 04/04/2016 28 POSITIVE - Fluoroquinolone Resistant Organism Identified. Sensitivities to follow. 29 NORMAL KIDNEY FUNCTION OR MILD DISEASE - GFR >OR=60 CHRONIC KIDNEY DISEASE - GFR 15 - 59 RENAL FAILURE - GFR <15 Est. GFR calculation based on the MDRD study equation, which assumes a steady state for creatinine. Est. GFR should not be used for medication dosing. 30 788.62 602.9 31 RIGHT LATERAL APEX 32 Benign prostatic tissue. 33 SPECIMEN DESCRIPTION MIDSTREAM URINE,CLEAN CATCH CULTURE RESULTS NO GROWTH REPORT STATUS FINAL 12/28/2014 34 SPECIMEN DESCRIPTION MIDSTREAM URINE,CLEAN CATCH CULTURE RESULTS NO GROWTH REPORT STATUS FINAL 11/25/2014 35 NEGATIVE - No Fluoroquinolone Resistant Organisms Isolated 36 GENERAL COMMENTS: No Growth after 24 hours. --- S=Sensitive I=Intermediate R=Resistant IB=Inducible Beta-lactamase. Appears in place of "Suceptible" with species known to possess inducible beta-lactamases. Potentially, they may become resistant to all beta-lactam drugs. Monitoring of p atients during/after therapy is recommended. Avoid other/combined beta- lactam drugs. 37 NEGATIVE - No Fluoroquinolone Resistant Organisms Isolated 38 GENERAL COMMENTS: No Growth after 24 hours. --- S=Sensitive I=Intermediate R=Resistant IB=Inducible Beta-lactamase. Appears in place of "Suceptible" with species known to possess inducible beta-lactamases. Potentially, they may become resistant to all beta-lactam drugs. Monitoring of p atients during/after therapy is recommended. Avoid other/combined beta- lactam drugs. Procedures Date Code Description Status 12/07/2018 53054 Ultrasound Retro Renal Real Time With Image Limited Completed Global 12/07/2018 24131 Bladder Scan, Post Voiding Residual Urine Completed 08/28/2017 [id number] Colonoscopy Completed 08/28/2017 48136 Cystourethroscopy, Separate Procedure Completed 08/18/[address] Abdomen/Pelvis With W/Wo Contrast Completed 06/15/2017 32306 Ultrasound Retro Renal Real Time With Image Limited Completed Tech 12/12/2016 67022 Bladder Scan, Post Voiding Residual Urine Completed 06/06/2016 23018 Bladder Scan, Post Voiding Residual Urine Completed 05/09/2016 51300 Biopsy, Prostate, Needle Or Punch, Single Or Multiple, Completed Any Approa 05/09/2016 66678 Injection, Therapeutic, Prophylactic, Or Diagnostic Completed Injection 05/09/2016 87743 Ultrasound,Prostate-Ultrasound Completed 05/09/2016 35929 Ultrasonic Guidance For Needle Completed Placement(Biopsy);Supervis & Inter 12/12/[address] Abdomen/Pelvis With W/Wo Contrast Completed 07/17/2015 19510 Bladder Scan, Post Voiding Residual Urine Completed 01/05/2015 73554 Bladder Scan, Post Voiding Residual Urine Completed 01/05/2015 98875 Bladder Scan, Post Voiding Residual Urine Completed 12/27/2014 22919 Ultrasound,Prostate-Ultrasound Completed 12/27/2014 50831 Biopsy, Prostate, Needle Or Punch, Single Or Multiple, Completed Any Approa 12/27/2014 65797 Ultrasonic Guidance For Needle Completed Placement(Biopsy);Supervis & Inter 11/24/2014 40197 Bladder Scan, Post Voiding Residual Urine Completed 11/24/2014 09085 Urodynamics, Complex Uroflowmetry Eg Calibrated Completed Electronic Office 06/10/2013 83969 Bladder Scan, Post Voiding Residual Urine Completed 11/12/2012 90571 Bladder Scan, Post Voiding Residual Urine Completed 11/04/2012 48095 Ultrasonic Guidance For Needle Completed Placement(Biopsy);Supervis & Inter 11/04/2012 89955 Ultrasound,Prostate-Ultrasound Completed 11/04/[address] Chest W/O Contrast Completed 11/04/2012 96508 Biopsy, Prostate, Needle Or Punch, Single Or Multiple, Completed Any Approa 10/19/2012 83843 Bladder Scan, Post Voiding Residual Urine Completed 10/19/2012 96752 Urodynamics, Complex Uroflowmetry Eg Calibrated Completed Electronic Office 09/05/2011 64006 Cystourethroscopy, Separate Procedure Completed 09/02/[address] Abdomen/Pelvis With W/Wo Contrast Completed 08/29/2011 18992 Urodynamics, Complex Uroflowmetry Eg Calibrated Completed Electronic Office 02/28/2011 81436 Bladder Scan, Post Voiding Residual Urine Completed Encounters Type Date Location Provider Dx Diagnosis Office Visit 12/07/2018 [facility]/ Alejandra Hays, N40.1 Benign prostatic 1:00p [facility]- C.U.N.P. hyperplasia with lower urinary tract symp R35.1 Nocturia R35.0 Frequency of micturition R39.15 Urgency of urination R31.21 Asymptomatic microscopic hematuria R97.20 Elevated prostate specific antigen [PSA] N42.9 Disorder of prostate, unspecified N28.1 Cyst of kidney, acquired Office Visit 08/28/2017 11:15a [facility] Medical/ Guanaco Zhang MD R35.1 Nocturia [facility] R35.0 Frequency of micturition N40.1 Benign prostatic hyperplasia with lower urinary tract symp N28.1 Cyst of kidney, acquired R97.20 Elevated prostate specific antigen [PSA] R39.12 Poor urinary stream R31.21 Asymptomatic microscopic hematuria Office Visit 06/15/2017 3:15p [facility] Alejandraviral Alveskerry, R97.20 Elevated Medical/ [facility] ANP-BC C.U.N.P. prostate Urology specific antigen [PSA] N42.9 Disorder of prostate, unspecified R31.1 Benign essential microscopic hematuria R31.0 Gross hematuria R35.1 Nocturia Office Visit 12/12/2016 9:45a Josselyn Jonesan Natasha, R97.20 Elevated Medical/ [facility]. ANP-BC C.U.N.P. prostate Urology specific antigen [PSA] N42.9 Disorder of prostate, unspecified R31.1 Benign essential microscopic hematuria R39.15 Urgency of urination R35.1 Nocturia Office Visit 06/06/2016 9:00a [facility] Alejandra Natasha, N39.0 Urinary tract Medical/ A.[facility]. ANP-BC C.U.N.P. infection, site Urology not specified R97.20 Elevated prostate specific antigen [PSA] R31.1 Benign essential microscopic hematuria R39.14 Feeling of incomplete bladder emptying N42.9 Disorder of prostate, unspecified Office Visit 03/28/2016 2:30p Josselyn Hays, N40.1 Benign prostatic Medical/ [facility]. ANP-BC C.U.N.P. hyperplasia with Urology lower urinary tract symp N42.9 Disorder of prostate, unspecified R97.20 Elevated prostate specific antigen [PSA] Office Visit 03/14/2016 3:45p Josselyn Cameron R91.1 Solitary Medical/ [facility] MD Vicente pulmonary nodule Urology R35.1 Nocturia J98.4 Other disorders of lung R35.0 Frequency of micturition N40.1 Benign prostatic hyperplasia with lower urinary tract symp R39.15 Urgency of urination R31.1 Benign essential microscopic hematuria N28.1 Cyst of kidney, acquired R97.20 Elevated prostate specific antigen [PSA] R91.1 Solitary pulmonary nodule Office Visit 12/12/2015 1:45p Josselyn Thornton/ Guanaco Cameron N28.1 Cyst of kidney, [facility] Urology MD Vicente acquired N40.1 Enlarged prostate with lower urinary tract symptoms R35.0 Frequency of micturition R35.1 Nocturia R91.1 Solitary pulmonary nodule R97.2 Elevated prostate specific antigen [PSA] R39.12 Poor urinary stream Office Visit 07/17/2015 1:15p Josselyn Hays, N40.1 Enlarged Medical/ A.M.P. ANP-BC C.U.N.P. prostate with Urology lower urinary tract symptoms R97.2 Elevated prostate specific antigen [PSA] R35.1 Nocturia R91.1 Solitary pulmonary nodule R31.2 Other microscopic hematuria Office Visit 01/05/2015 4:00p Josselyn Cameron 793.11 Solitary Medical/ [facility]. MD [place]ente Pulmonary Nodule Urology 790.93 Elevated Prostate Specific Antigen (PSA) 788.62 Urinary Stream Slowing 788.41 Urinary Frequency 788.43 Nocturia Office Visit 11/24/2014 8:30a Josselyn Hays, 602.9 Prostate Medical/ A.M.[facility]. ANP-BC C.U.N.P. Disorder Unspec Urology 790.93 Elevated Prostate Specific Antigen (PSA) 600.00 Hypertrophy Prostate W/O Urinary Obstruction & Other Luts 788.4-1 Nocturia 788.62 Urinary Stream Slowing 788.41 Urinary Frequency Office Visit 06/10/2013 4:15p [facility]ifata[facility]/ [facility] Alejandra Hays, 602.9 Prostate Urology ANP-BC C.U.N.P. Disorder Unspec 600.00 Hypertrophy Prostate W/O Urinary Obstruction & Other Luts 790.93 Elevated Prostate Specific Antigen (PSA) 788.4-1 Nocturia 788.33-1 Urinary Urgency Office Visit 11/12/2012 3:00p Abdifatah/ [facility] Alejandra Hays, 790.93 Elevated Urology ANP-BC C.U.N.P. Prostate Specific Antigen (PSA) 602.9 Prostate Disorder Unspec 788.62 Urinary Stream Slowing 599.72 Microscopic Hematuria Office Visit 10/19/2012 9:45a Abdifatah/ [facility] Alejandra Hays, 790.93 Elevated Urology ANP-BC C.U.N.P. Prostate Specific Antigen (PSA) 602.9 Prostate Disorder Unspec 788.4-1 Nocturia 793.11 Solitary Pulmonary Nodule Office Visit 09/22/2011 4:15p [facility]rology Guanaco Cameron 793.11 Solitary MD Vicente Pulmonary Nodule 599.72 Microscopic Hematuria 600.00 Hypertrophy Prostate W/O Urinary Obstruction & Other Luts 788.4-1 Nocturia 788.35 Incontinence Post Void Dribbling 790.93 Elevated Prostate Specific Antigen (PSA) 518.89 Lung Disease Other Not Elsewhere Class Office Visit 08/29/2011 3:30p Abdifatah/ [facility] Alejandra Hays, 599.72 Microscopic Urology ANP-BC C.U.N.P. Hematuria 602.9 Prostate Disorder Unspec 600.00 Hypertrophy Prostate W/O Urinary Obstruction & Other Luts 788.4-1 Nocturia 788.35 Incontinence Post Void Dribbling 790.93 Elevated Prostate Specific Antigen (PSA) Office Visit 02/28/2011 3:45p Abdifatah/ [facility] Alejandra Hays, 600.01 Hypertrophy Benign Urology ANP-BC C.U.N.P. Of Prostate With Urinary Obstruction V71.1 Observation & Evaluation Malignant Neoplasm Suspected 790.93 Elevated Prostate Specific Antigen (PSA) Office Visit 08/30/2010 1:45p Abdifatah/ [facility] Alejandra Hays, 790.93 Elevated Urology ANP-BC C.U.N.P. Prostate Specific Antigen (PSA) 602.9 Prostate Disorder Unspec 788.4-1 Nocturia Office Visit 07/10/2003 1:00p [facility]/ DO Use DRT 236.5 Neoplasm Uncertain [facility] Prostate Plan of Treatment Future Appointment(s):02/11/2019 10:00 am - Guanaco Zhang MD at [facility]/ A[facility]P. [id number]/11/2019 9:30 am - MILANA SIDDIQI at [facility]/ A.M.P. [id number]/07/2018 - LATANYA Haney- C.U.N.P.N40.1 Benign prostatic hyperplasia with lower urinary tract symptoComments:History of prostate enlargement with patient reporting reporting worsening urgency, frequency and diminished force of stream with a sense of incomplete evacuation despite undergoing TUMT in 2011 and using tamsulosin 0.4 mg daily. Minimal residual noted on limited bladder ultrasound today.Plan: Discussed with Dr. Zhang. Patient will return for evaluation consisting of uroflowmetry, pelvic ultrasound , bladder scan and discussion of treatment options.R35.1 JgrithssJ79.0 Frequency of ggxzgqshplgQ12.15 Urgency of ahbmgzwzrP16.21 Asymptomatic microscopic hematuriaComments:History of microhematuria with trace red blood cells on urine sample today. Negative evaluation for microhematuria in 2018.Plan : Urine culture and cytology obtained and pending.R97.20 Elevated prostate specific antigen [PSA]Comments:Elevated but stable PSA with abnormal digital rectal examination.Plan: Subsequent office visits to include repeat PSA and digital rectal examination.N42.9 Disorder of prostate, hxingcnczdwT26.1 Cyst of kidney, acquiredComments:History of renal cyst disease with bilateral stable appearing renal cysts on limited retroperitonealultrasound today.Plan: Subsequent office visit to include repeat limited retroperitoneal ultrasound to assess stability.
[2018-12-15 13:54] VITALS: BP 105/61
--- NOTE | 2018-12-15 14:22 | UC ---
Lower Extremity/Ankle HPI - HPI Summary HPI Summary: 73 yo male with the onset of severe muscle cramps (hands and feet) that started about 11 AM he states that this often occurs to him and his cramps last hours ate a banana and feels a little better not on diurectics states he stays well hydrated - History of Current Complaint Chief Complaint: UCGeneralIllness Stated Complaint: B/L LEG,ANKLE,HAND COMPLAINT Time Seen by Provider: 12/15/18 13:44 Hx Obtained From: Patient Onset/Duration: Sudden Onset, Lasting Hours Severity Initially: Severe Severity Currently: Severe Pain Intensity: 10 Pain Scale Used: 0-10 Numeric Aggravating Factor(s): Nothing Alleviating Factor(s): Other - ? banana Able to Bear Weight: Yes - Allergies/Home Medications Allergies/Adverse Reactions: Allergies Allergy/AdvReac Type Severity Reaction Status Date / Time clarithromycin [From Biaxin] Allergy Rash Verified 12/15/18 13:48 Home Medications: Home Medications Aspirin EC TAB* [Ecotrin EC Low Dose 81 MG*] 81 mg PO DAILY 12/15/18 [History Confirmed 12/15/18] Atorvastatin* [Lipitor*] 10 mg PO BEDTIME 12/15/18 [History Confirmed 12/15/18] Ipratropium/Albuterol Sulfate [Iprat-Albut 0.5-3(2.5) mg/3 ml] 3 ml INH Q6H PRN 12/15/18 [History Confirmed 12/15/18] Levalbuterol 1.25 mg/3 mL (NF) [Levalbuterol HCl] 3 ml INH Q6H PRN 12/15/18 [ History Confirmed 12/15/18] Losartan TAB* [Cozaar TAB*] 25 mg PO DAILY 12/15/18 [History Confirmed 12/15/18] Metoprolol Succinate XL TAB* [Toprol XL TAB*] 25 mg PO BEDTIME 12/15/18 [ History Confirmed 12/15/18] Montelukast Sodium TAB* [Singulair TAB*] 10 mg PO DAILY 12/15/18 [History Confirmed 12/15/18] Ranitidine TAB (NF) [Zantac TAB (NF)] 300 mg PO DAILY 12/15/18 [History Confirmed 12/15/18] Roflumilast (NF) [Daliresp (NF)] 500 mcg PO DAILY 12/15/18 [History Confirmed ] Tamsulosin CAP* [Flomax CAP*] 0.4 mg PO DAILY 12/15/18 [History Confirmed ] metFORMIN* [Glucophage 500 MG TAB *] 500 mg PO BID 12/15/18 [History Confirmed 12/15/18] PMH/Surg Hx/FS Hx/Imm Hx Previously Healthy: Yes Endocrine History: Diabetes, Dyslipidemia Cardiovascular History: Hypertension Respiratory History: COPD - Surgical History Surgical History: Yes Surgery Procedure, Year, and Place: Right TKA, 2014, [facility]; Appendectomy, 2005 , [facility]; Right Femur Fracture, 1972 - Family History Known Family History: Positive: Hypertension - Social History Alcohol Use: Rare Substance Use Type: None Smoking Status (MU): Heavy Every Day Tobacco Smoker Type: Cigarettes Amount Used/How Often: ~1/2 PPD Length of Time of Smoking/Using Tobacco: Since Age 9 Cessation Counseling: Patient Advised to Stop Review of Systems All Other Systems Reviewed And Are Negative: Yes Constitutional: Positive: Negative Skin: Positive: Negative Eyes: Positive: Negative ENT: Positive: Negative Respiratory: Positive: Shortness Of Breath - chronic and at his baseline Cardiovascular: Positive: Negative Gastrointestinal: Positive: Negative Genitourinary: Positive: Negative Motor: Positive: Negative Neurovascular: Positive: Negative Musculoskeletal: Positive: Myalgia - hand and feet cramps Neurological: Positive: Negative Psychological: Positive: Negative Physical Exam Triage Information Reviewed: Yes Appearance: Well-Appearing, No Pain Distress, Well-Nourished Vital Signs: Initial Vital Signs Temp 97.8 F 12/15/18 13:46 Pulse 89 12/15/18 13:46 Resp 18 12/15/18 13:46 BP 105/61 12/15/18 13:46 Pulse Ox 95 12/15/18 13:46 Vital Signs Reviewed: Yes Eyes: Positive: Conjunctiva Clear ENT: Positive: Hearing grossly normal. Negative: Nasal congestion, Nasal drainage, Tonsillar swelling, Tonsillar exudate, Muffled voice, Hoarse voice Neck: Positive: Supple, Nontender, No Lymphadenopathy Respiratory: Positive: Wheezing, Other: - increased WOB Cardiovascular: Positive: RRR Musculoskeletal: Positive: ROM Intact, No Edema, Other: - good pulses wrists/ feet, good cap refill Neurological: Positive: Alert Psychological Exam: Normal Skin Exam: Normal Lower Extremity Course/Dx - Differential Dx/Diagnosis Provider Diagnosis: Muscle cramps Discharge - Sign-Out/Discharge Documenting (check all that apply): Patient Departure All imaging exams completed and their final reports reviewed: No Studies - Discharge Plan Condition: Stable Disposition: HOME Patient Education Materials: Muscle Cramp (ED) Referrals: Mary Michel MD [Primary Care Provider] - 1 Week Additional Instructions: blood work pending stay hydrated you can try drinking some pickle juice to see if it helps recheck for new or worsening symptoms mention the muscle cramps to you physician during your next appt - Billing Disposition and Condition Condition: STABLE Disposition: Home
[2018-12-15 19:30] LABS: Calcium 9.4 mg/dL (8.6-10.3); Magnesium 2.3 mg/dL (1.9-2.7); Potassium 4.2 mmol/L (3.5-5.0)
[2018-12-15 19:35] LABS: BUN/Creatinine Ratio 14.1 (8-20); EGFR African American 117.7 (>60); EGFR Non-African American 97.3 (>60)
== END 2018-12-15 14:40 | disposition home or self-care (01) ==
LOC: UCCORT 13:14
DX: R25.2 Cramp and spasm (principal); E11.9 Type 2 diabetes mellitus without complications; Z79.84 Long term (current) use of oral hypoglycemic drugs; E78.5 Hyperlipidemia, unspecified; I10 Essential (primary) hypertension; J44.9 Chronic obstructive pulmonary disease, unspecified; Z96.651 Presence of right artificial knee joint; Z88.1 Allergy status to other antibiotic agents; F17.210 Nicotine dependence, cigarettes, uncomplicated
CPT/HCPCS: 36415; 80048; 83735; 99202; G0463